=== PATIENT | female | born 1960 | race Caucasian/White ===

== ENCOUNTER 2021-11-28 08:25 | Emergency (ER) | payer OTHER, SELFPAY ==
--- NOTE | ~2021-11-28 | XR_ITS ---
EXAMINATION: XR abdomen/kub 1V DATE: 11/28/2021 09:00 INDICATION: Right flank pain. Abdominal pain. TECHNIQUE: A supine view of the abdomen was obtained. COMPARISON: Abdomen radiographs 02/22/2008 FINDINGS: There are no dilated loops of bowel. There is a small volume of stool in the colon. There a re phleboliths in the pelvis. IMPRESSION: 1. Normal bowel gas pattern. Reviewed, dictated and finalized at location A.
--- NOTE | 2021-11-28 08:31 | ED.BACK ---
HPI - Back Pain/Injury General Chief Complaint: Back Pain/Injury Stated Complaint: back pain Time Seen by Provider: 11/28/21 08:35 Source: patient Mode of arrival: ambulatory Limitations: no limitations History of Present Illness HPI Narrative: 60-year-old female presented for complaint of right kidney pain since last night. She endorses associated nausea, vomiting, loose stools, chills and decreased appetite. She states the urine is not coming out. She states she has drink more soda in the last week. She denies hematuria or urgency or fever. Endorses a history of renal failure r/t preeclampsia in 1982. She took Xanax and BC powder today for symptoms. Related Data Home Medications Medication Instructions Recorded Confirmed alprazolam 1 mg tablet 1 mg PO QID 11/28/21 11/28/21 aripiprazole 10 mg tablet 10 mg PO DAILY 11/28/21 11/28/21 carisoprodol 350 mg tablet 350 mg PO QID 11/28/21 11/28/21 fluoxetine 40 mg capsule 80 mg PO DAILY 11/28/21 11/28/21 spironolactone 50 mg tablet 50 mg PO DAILY 11/28/21 11/28/21 Allergies Allergy/AdvReac Type Severity Reaction Status Date / Time clarithromycin Allergy Intermediate CAUSED Verified 11/28/21 09:47 BLADDER INFECTION miconazole Allergy Unknown Verified 11/28/21 09:47 [From Neosporin AF] neomycin Allergy Unknown Verified 11/28/21 09:47 Review of Systems Review of Systems: CONSTITUTIONAL: Denies body aches, fever EYES: Denies visual changes CARDIOVASCULAR: Denies chest pain, palpitations, or edema. RESPIRATORY: Denies cough or dyspnea. GASTROINTESTINAL: Denies abdominal pain SKIN: Denies rash, itching, or wounds. MUSCULOSKELETAL: reports right lower back pain NEUROLOGIC: Denies headache, numbness, tingling, or weakness. All systems reviewed & are unremarkable except as noted in HPI and below PMFSH Comments At time of signature, I have reviewed and agree with nursing past medical, surgical, social and family history unless otherwise noted. Please see nursing chart for further information. There is no relevant family history pertinent to the presenting complaint Exam Narrative: GENERAL: appears in pain CHEST: Speaks in full sentences. No respiratory distress. HEART: Regular rate and rhythm. Normal and equal peripheral pulses. MUSC: Right flank pain and CVA tenderness with palpation. No Vertebral point tenderness. BLEs with normal strength and sensation, normal range of motion. Pulse palpable and equal bilaterally, skin warm, dry, pink. Capillary refill less than 3 seconds. Gait steady. SKIN: Warm, dry, no rash. NEURO: Alert and oriented x3. Course Course Emergency Course: Patient is aware of diagnosis, understands and agrees to treatment plan. Anticipatory guidance given. Portions of this record may have been created with voice recognition software Level of Care: Express Care Visit Vital Signs Vital signs: Vital Signs Temperature 97.9 F 11/28/21 08:36 Pulse Rate 61 11/28/21 08:36 Respiratory Rate 16 11/28/21 08:36 Blood Pressure 192/89 H 11/28/21 08:36 Pulse Oximetry 100 11/28/21 08:36 Temperature 97.9 F 11/28/21 08:37 Pulse Rate 61 11/28/21 08:37 Respiratory Rate 16 11/28/21 08:37 Blood Pressure 192/89 H 11/28/21 08:37 Pulse Oximetry 100 11/28/21 08:37 Reviewed Transfer Transfered to: [facility] Transportation: Other (private vehicle) Transfer rationale: Pt is agreeable to transfer for further evaluation of the pain. Requests transfer to [facility] via private vehicle. Risks of transportation reviewed with pt including injury, worsening of condition and . v/u. will be driving pt; Report called to [facility], spoke with Dr Pickard, accepting physician. Pt is in stable condition at time of transfer. Advised to remain NPO and go directly to the hospital. MDM - Back Pain/Injury MDM Narrative Medical decision making narrative: Xray reviewed with pt. Declines antiemetic or
[2021-11-28 08:36] VITALS: BP 192/89; PULSE 61; RESP 16; TEMP 36.6; O2SAT 100
[2021-11-28 08:37] VITALS: BP 192/89; PULSE 61; RESP 16; TEMP 36.6; O2SAT 100
[2021-11-28] MEDS: KETOROLAC (*BKC) 60 MG/2 ML VIAL IM (09:23)
== END 2021-11-28 09:28 | disposition short-term general hospital (02) ==
PROVIDERS: Emergency Provider Nurse Practitioner Family; PCP Family Medicine
DX: R10.9 Unspecified abdominal pain (principal); I10 Essential (primary) hypertension; F32.A Depression, unspecified; F41.9 Anxiety disorder, unspecified
CPT/HCPCS: 74018; 81003; 87086; 96372; 99213; G0463; J1885

== ENCOUNTER 2021-11-28 09:46 | Emergency (ER) | payer OTHER, SELFPAY ==
--- NOTE | ~2021-11-28 | CT_ITS ---
EXAMINATION: CT abdomen pelvis w con DATE: 11/28/2021 13:05 INDICATION: Right flank pain. Nausea and vomiting. Diarrhea. TECHNIQUE: Computed tomography (CT) of the abdomen and pelvis was performed with 100 mL Omnipaque 350 intravenous contrast. Automated exposure control and iterative reconstruction technique were employe d. The dose-length product was 237.17 mGy-cm. COMPARISON: CT abdomen and pelvis 12/06/11 FINDINGS: The visualized portions of the lung bases demonstrate mild atelectasis. No pleural effusion . The heart size is normal. No pericardial effusion. The liver and gallbladder are normal. There is a 15 mm cyst in the spleen. The pancreas, adrenal glands, and kidneys are normal. There are no dilated loops of bowel. The appendix is normal. There are no pathologically enlarged lymph nodes. There is p hysiologic fluid in the pelvis. There is mild thoracolumbar spondylosis. IMPRESSION: 1. No etiology for the patient's symptoms. Reviewed, dictated and finalized at location A.
[2021-11-28 09:47] VITALS: BP 156/100; PULSE 61; RESP 16; TEMP 36.9; O2SAT 99
[2021-11-28 10:12] LABS: Basophils Percent Auto 0.3 % (0.2-1.2); Eosinophils Percent Auto 0.3 % (0-4.4); Hematocrit 41.1 % (37.0-47.0); Hemoglobin 13.6 g/dL (12.0-15.0); Immature Granulocyte Absolute 0.03 K/mm3 (0.00-0.031); Immature Granulocyte Percent A 0.3 % (0-0.5); Lymphocytes Percent Auto 4.4 % (18.3-44.2); Mean Corpuscular HGB Conc 33.1 g/dl (32-36); Mean Corpuscular Volume 90.7 fl (80-100); Monocytes Absolute Auto 0.4 K/mm3 (0.1-0.6); Monocytes Percent Auto 3.1 % (2.6-8.5); Neutrophils Absolute Auto 10.5 K/mm3 (1.3-6.7); Neutrophils Percent Auto 91.6 % (45.5-73.1); Platelet Count Result 301 k/mm3 (150-375); Red Blood Count 4.53 M/mm3 (4.2-5.4); Red Cell Distribution Width 14.3 % (11.5-14.5); White Blood Count 11.5 K/mm3 (4.5-10.0)
[2021-11-28 10:24] LABS: Alanine Aminotransferase 15 U/L (6-35); Albumin Level 4.8 g/dL (3.5-5.1); Alkaline Phosphatase 89 U/L (38-126); Anion Gap 4 mmol/L (8-16); Aspartate Amino Transferase 27 U/L (14-36); Bilirubin,Total 0.2 mg/dL (0.2-1.3); Blood Urea Nitrogen 9 mg/dL (7-17); Calcium 9.4 mg/dL (8.4-10.2); Carbon Dioxide 26 mmol/L (22-30); Chloride 101 mmol/L (98-107); Estimated CRCL calculation 64 ml/min; Estimated Glomerular Filt Rate > 60; Glucose 107 mg/dL (65-110); Potassium 4.5 mmol/L (3.4-5.0); Sodium 131 mmol/L (137-145)
[2021-11-28 11:52] LABS: Appearance Urine Clear (Clear); Bilirubin Urine Negative (Negative); Blood Urine Negative (Negative); Color Urine Yellow (Yellow); Glucose Urine UA Negative (Negative); Ketones Urine 2+ mg/dL (Negative); Leukocyte Esterase Ur Negative LEU/UL (Negative); Nitrate Urine Negative (Negative); Protein Urine Negative (Negative); Urobilinogen Urine 0.2 mg/dL (<2.0)
[2021-11-28 12:10] LABS: Add Urine Microscopic? YES; Mucus Urine Rare /lpf; RBC Urine 0-2 /hpf (0-2); Squamous Epithelial Cell Urine Rare /hpf (Few); WBC Urine 0-3 /hpf
--- NOTE | 2021-11-28 12:10 | ED.ABDPAIN ---
HPI - Abdominal Pain General Chief Complaint: Abdominal Pain Stated Complaint: right flank pain that began yesterday Time Seen by Provider: 11/28/21 12:09 Source: patient Mode of arrival: ambulatory Limitations: no limitations History of Present Illness HPI narrative: 60 years old white female came to the emergency room with right flank pain started 2 days ago, constant, sharp, spasm, stabbing, worse with standing and bending forward, better laying down flat on hard floor. She reports some nausea, vomiting and chills. Patient did not get any better with Tylenol or ibuprofen. Patient came to the hospital by private car, history of depression, anxiety and tension headache. She denies any recent trauma or new physical activities. She denies any history of abdominal surgery or kidney stone. Related Data Home Medications Medication Instructions Recorded Confirmed alprazolam 1 mg tablet 1 mg PO QID 11/28/21 11/28/21 aripiprazole 10 mg tablet 10 mg PO DAILY 11/28/21 11/28/21 carisoprodol 350 mg tablet 350 mg PO QID 11/28/21 11/28/21 fluoxetine 40 mg capsule 80 mg PO DAILY 11/28/21 11/28/21 spironolactone 50 mg tablet 50 mg PO DAILY 11/28/21 11/28/21 Allergies Allergy/AdvReac Type Severity Reaction Status Date / Time clarithromycin Allergy Intermediate CAUSED Verified 11/28/21 09:47 BLADDER INFECTION miconazole Allergy Unknown Verified 11/28/21 09:47 [From Neosporin AF] neomycin Allergy Unknown Verified 11/28/21 09:47 Review of Systems Review of Systems: All systems reviewed & are unremarkable except as noted in HPI and below Exam Narrative: General appearance: Well-developed, well-nourished Skin: Normal color Head: Normocephalic, nontraumatic Eyes: Clear conjunctiva ENT: Oropharynx normal, ears normal, nose normal Neck: Supple, nontender Chest and respiratory: Airway patent, no respiratory distress, no accessory muscle use Heart: Regular rate/rhythm Abdomen: Soft, moderate tenderness right flank, no bruises, no swelling or rash , no organomegaly, quiet bowel sounds Vascular: Normal peripheral pulses, normal capillary refill. Musculoskeletal: Normal range of motion, nontender back Neurologic: Alert and oriented ?3, [employer] is normal as tested, no gross motor deficit Course Vital Signs Vital signs: Vital Signs Temperature 36.9 C 11/28/21 09:47 Pulse Rate 61 11/28/21 09:47 Respiratory Rate 16 11/28/21 09:47 Blood Pressure 156/100 H 11/28/21 09:47 Pulse Oximetry 99 11/28/21 09:47 Oxygen Delivery Room Air 11/28/21 09:47 Temperature 36.9 C 11/28/21 09:47 Pulse Rate 60 11/28/21 12:50 Respiratory Rate 17 11/28/21 12:50 Blood Pressure 146/76 H 11/28/21 12:50 Pulse Oximetry 98 11/28/21 12:50 Oxygen Delivery Room Air 11/28/21 09:47 MDM - Abdominal Pain Lab Data Result diagrams: 11/28/21 10:04 11/28/21 10:04 Labs: Lab Results 11/28/21 11/28/21 11/28/21 Range/Units 10:04 10:04 10:04 WBC 11.5 H (4.5-10.0) K/mm3 RBC 4.53 (4.2-5.4) M/mm3 Hgb 13.6 (12.0-15.0) g/dL Hct 41.1 (37.0-47.0) % MCV 90.7 (80-100) fl MCH 30.0 (26-34) pg MCHC 33.1 (32-36) g/dl RDW 14.3 (11.5-14.5) % Plt Count 301 (150-375) k/mm3 MPV 10.0 (7.4-10.4) fl Immature Gran % (Auto) 0.3 (0-0.5) % Neut % (Auto) 91.6 H (45.5-73.1) % Lymph % (Auto) 4.4 L (18.3-44.2) % [place] % (Auto) 3.1 (2.6-8.5) % Eos % (Auto) 0.3 (0-4.4) % Baso % (Auto) 0.3 (0.2-1.2) % Lymph # (Auto) 0.50 L (0.9-3.2) K/mm3 [place] # (Auto) 0.4 (0.1-0.6) K/mm3 Eos # (Auto) 0.0 (0-0.3) K/mm3 Baso # (Auto) 0.0 (0.0-0.1) K/m
[2021-11-28] MEDS: SODIUM CHLORIDE 0.9% IV 1,000 ML 999 ML IV CONT (12:46)
[2021-11-28] MEDS: HYDROmorphone HCL INJ (*CRX) 1 MG/ML SYR 0.5 MG IV PUSH (12:47)
[2021-11-28] MEDS: ONDANSETRON INJ 4 MG/2 ML VIAL IV PUSH (12:47)
[2021-11-28 12:50] VITALS: BP 146/76; PULSE 60; RESP 17; O2SAT 98
[2021-11-28 14:59] VITALS: BP 133/94; PULSE 59; RESP 18; O2SAT 96
== END 2021-11-28 14:59 | disposition home or self-care (01) ==
PROVIDERS: Nurse Practitioner Family; Emergency Provider Emergency Medicine; PCP Family Medicine
DX: R10.9 Unspecified abdominal pain (principal)
CPT/HCPCS: 36415; 74018; 74177; 80053; 81001; 81003; 81025; 85025; 87086; 96361; 96372; 96374; 96375; 99284; J1170; J1885; J2405; J7030; Q9967

== ENCOUNTER 2023-10-07 14:29 | Emergency (ER) | payer OTHER, SELFPAY ==
[2023-10-07 14:30] VITALS: BP 149/83; PULSE 97; RESP 16; TEMP 36.4; O2SAT 98
--- NOTE | 2023-10-07 15:06 | PC.NURSE ---
Pt to desk saying she wants to go home and will come back when it is less busy. Pt A&Ox4, ambulatory with steady gait.
== END 2023-10-07 15:26 | disposition left against medical advice (07) ==
LOC: ANHED 15:17
PROVIDERS: PCP Family Medicine
DX: R10.13 Epigastric pain (principal)
CPT/HCPCS: 99199